=== PATIENT | female | born 1945 | race Caucasian/White ===

== ENCOUNTER 2016-05-19 08:49 | Emergency (ER) | payer MEDICARE ==
[~2016-05-19] VITALS: Ht 144.8 cm; Wt 40.6 kg
[~2016-05-19 08:49] MED LIST: ASP81CT PO; ATOR10TA56; CYAN50005 PO; FURO-125 PO; MECL-115 PO; OMEP20CA12 PO; TRIA1TAB3 PO
--- OUTSIDE RECORDS SUMMARY | 2016-05-19 08:55 | XMS REPORT | Summary of Care ---
Author Author Radha Varghese, FACP,, Cesar F Organization Unknown Address [address], [place] [id number] Phone Unavailable Care Team Providers Care Software Tools Developer Name Role Phone Noreen Evangelista M.D. Unavailable Suresh Gaming M.D. Unavailable Unavailable Radha Varghese, FACP,, F Unavailable Unavailable Rakesh Evangelista PP Unavailable Unavailable Unavailable Functional Status Functional Status Health Issues Name Dates Details Functional status health issues are not documented Status: Cognitive Status Health Issues Name Dates Details Cognitive status health issues are not documented Status: Problems Name Dates Details Weight loss, unintentional (783.21, R63.4) Status: Active Vitamin B12 deficiency (266.2, E53.8) Status: Active Gastric erosions (535.40, K25.9) Status: Active Dyspnea (786.09, R06.00) Status: Active History of CVA (cerebrovascular accident) (V12.54, Z86.73) Status: Active 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, Z95.1) Status: Active Sensation of fullness in ear, bilateral (388.8, H93.8X3) Status: Active Impairment of balance (781.2, R26.89) Status: Active CAD (coronary artery disease) (414.00, I25.10) Status: Active Hyperlipemia (272.4, E78.5) Status: Active Dental abscess (522.5, K04.7) Status: Active Hypertension (401.9, I10) Status: Active Pain, dental (525.9, K08.8) Status: Active Osteoarthritis (715.90, M19.90) Status: Active Sciatica, left (724.3, M54.32) Status: Active Low back pain (724.2, M54.5) Status: Active Hip bursitis, left (726.5, M70.72) Status: Active Bursitis of hip (726.5, M70.70) Status: Active Iron deficiency anemia due to chronic blood loss (280.0, D50.0) Status: Active Lung fibrosis (515, J84.10) Status: Active Medications Name Dates Details Furosemide 20 MG Oral Tablet take two tablets by mouth daily Quantity: 180 Refills: 2 Rakesh Evangelista M.D. Started 25-Feb-2014 ActiveAtorvastatin Calcium 10 MG Oral Tablet TAKE 1 TABLET DAILY AT BEDTIME. Quantity: 90 Refills: 3 Rakesh Evangelista M.D. Started 25-Feb-2014 ActiveAspirin 81 MG TABS TAKE 1 TABLET DAILY. Refills: 0 Rakesh Evangelista M.D. Started 24-Mar-2014 ActiveOmeprazole 20 MG Oral Capsule Delayed Release TAKE ONE CAPSULE BY MOUTH TWICE A DAY Quantity: 60 Refills: 3 Rakesh Evangelista M.D. Started 11-Dec-2014 ActiveB-12 5000 MCG Oral Capsule Refills: 0 Started 26-Dec-2014 ActiveNaproxen 500 MG Oral Tablet TAKE 1 TABLET EVERY 12 HOURS DAILY. Quantity: 60 Refills: 1 Suresh Knapp M.D. Started 21-Aug-2015 ActiveIron 325 (65 Fe) MG Oral Tablet TAKE ONE TABLET BY MOUTH EVERY DAY WITH FOOD Refills: 0 Cesar Garcia M.D., VIKTOR, Started 27-Aug-2015 Active Allergies and Adverse Reactions Name Dates Details Lortab TABS Status: Active morphine Status: Active Past Medical History Name Dates Details History of abdominal pain (V13.89, Z87.898) Status: Resolved History of backache (V13.59, Z87.39) Status: Resolved History of nausea and vomiting (V12.79, Z87.898) Status: Resolved History of Stroke syndrome (434.91, I63.9) Status: Resolved History of thrombocytosis (V12.3, Z86.2) Status: Resolved Procedures Procedure Dates Details History of Tonsillectomy With Adenoidectomy History of Knee Surgery History of Hysterectomy History of Cath Placement Of Stent 2 History of CABG CBC w/ Auto Diff 7150 Ordered:27-Aug-2015 Comprehensive Metabolic Panel 1212 Ordered:27-Aug-2015 EPO PANEL 3699 Ordered:27-Aug-2015 ORTHO SPINE LUMBAR (5 VIEWS) Ordered:20-Aug-2015 CT CHEST WITH IV CONTRAST Ordered:27-Aug-2015 Immunization Name Dates Details Immunizations not documented Family History Unknown Family Member Name Dates Details Family history of renal failure (V18.69, Z84.1) Comments: Family History Status: Active Family history of colonic polyps (V18.51, Z83.71) Comments: Family History Status: Active Family history of melanoma (V16.8, Z80.8) Comments: Family History Status: Active Family history of alcoholism (V17.0, Z81.1) Comments: Family History Status: Active Father Name Dates Details Family history of acute myocardial infarction (V17.3, Z82.49) Status: Active Social History Name Dates Details Smoking StatusFormer smoker Vital Signs Date Test Result Details 27-Aug-2015 13:57 BP Systolic 113 mm[Hg] Status: BP Diastolic 66 mm[Hg] Status: Temperature 98.4 f Status: Heart Rate 79 /min Status: Weight 93.5 lb Status: Body Mass Index Calculated 20.23 kg/m2 Status: Body Surface Area Calculated 1.3 m2 Status: 21-Aug-2015 11:28 BP Systolic 142 mm[Hg] Status: BP Diastolic 78 mm[Hg] Status: Heart Rate 82 /min Status: Weight 92 lb Status: Body Mass Index Calculated 19.91 kg/m2 Status: Body Surface Area Calculated 1.29 m2 Status: 11-Aug-2015 11:05 BP Systolic 130 mm[Hg] Status: BP Diastolic 78 mm[Hg] Status: Heart Rate 80 /min Status: Weight 95 lb Status: O2 SAT 96 % Status: Body Mass Index Calculated 20.56 kg/m2 Status: Body Surface Area Calculated 1.31 m2 Status: Results Date Description Value Details 17-Aug-2015 16:40 CT CHEST WITH IV CONTRAST Comments: Exam Date: 2015 14:18Dictation Date: 08/17/2015 16:40 XC CHEST (Better) 19-Aug-2015 16:04 MRI LUMBAR SPINE Comments: Exam Date: 08/19/2015 13: 00Dictation Date: 08/19/2015 16:04 XMR SPINE LUMBAR (Better) 26-Aug-2015 13:58 CBC w/ Auto Diff 7150 WBC 8.7 K/uL (Better) Range: 4.5-11.0 RBC 4.51 mil/uL (Better) Range: 3.60-5.00 HGB 14.2 g/dL (Better) Range: 12.0-16.0 HCT 42.7 % (Better) Range: 36.0-48.0 MCV 94.6 fL (Better) Range: 80.0-99.0 MCH 31.3 pg (Better) Range: 27.3-32.5 MCHC 33.2 % (Better) Range: 32.0-36.0 RDW 14.1 % (Better) Range: 11.6-14.8 PLATELETS 341 K/uL (Better) Range: 150-400 MPV 8.3 fL (Better) Range: 6.0-11.0 %NEUTRO 64.4 % (Better) Range: 37.0-80.0 %LYMPHS 24.4 % (Better) Range: 13.0-50.0 %MONO 5.8 % (Better) Range: 0.0-12.0 %EOS 2.6 % (Better) Range: 0.0-7.0 %BASO 0.6 % (Better) Range: 0.0-2.5 %BENSON 2.2 % (Better) Range: 0.0-5.0 NEUTRO 5.6 K/uL (Better) Range: 2.0-6.9 LYMPHS 2.1 K/uL (Better) Range: 0.6-3.4 MONOS 0.5 K/uL (Better) Range: 0.0-0.9 EOS 0.2 K/uL (Better) Range: 0.0-0.7 BASO 0.1 K/uL (Better) Range: 0.0-0.2 14:28 VITAMIN B12 3606 VITAMIN B12 >2000 pg/mL (Above high threshold) Range: 211-911 14:28 FOLATE 3608 FOLATE 12.5 ng/mL (Better) Range: 5.4-20.8 14:28 FERRITIN 3025 FERRITIN 13 ng/mL (Better) Range: 10-291 14:29 Comprehensive Metabolic Panel 1212 SODIUM 140 mmol/L (Better) Range: 133-144 POTASSIUM 4.7 mmol/L (Better) Range: 3.5-5.1 CHLORIDE 101 mmol/L (Better) Range: 98-110 CARBON DIOXIDE 27.9 mmol/L (Better) Range: 23.0-33.0 ANION GAP 11 mmol/L (Better) Range: 6-16 BUN 15 mg/dL (Better) Range: 7-18 CREATININE, SERUM 1.12 mg/dL (Above high threshold) Range: 0.55-1.02 Comments: Please note new reference ranges effective 2014.----- BUN:CREATININE RATIO 13 (Better) EST GFR, 58 ml/min (Below low threshold) Range: >60 EST GFR, NON-AFR CAMEROONIAN 48 ml/min (Below low threshold) Range: >60 Comments: EST GFR is reported in ml/min per 1.73 m2 of body surface area. For -Bolivian, please multiple result by 1.2.----- GLUCOSE 85 mg/dL (Better) Range: 70-100 ALK PHOSPHATASE 85 U/L (Better) Range: 46-116 TOTAL BILIRUBIN 0.50 mg/dL (Better) Range: 0.20-1.00 AST 19 U/L (Better) Range: 8-35 ALT 21 U/L (Better) Range: 14-59 Comments: Please note new reference ranges. Effective 07/17/2014.----- ALBUMIN 4.2 g/dL (Better) Range: 3.4-5.0 TOTAL PROTEIN 7.0 g/dL (Better) Range: 6.4-8.2 A/G RATIO 1.5 units (Better) Range: 1.0-1.8 CALCIUM 8.8 mg/dL (Better) Range: 8.5-10.1 14:29 Iron Panel with TIBC 1612 IRON 93 ug/dL (Better) Range: 50-170 TOTAL IRON BIND. CAPACITY 418 ug/dL (Better) Range: 250-450 % IRON SATURATION 22 % (Better) Range: 20-55 Plan of Care Planned Observations Name Dates Details Planned Goals not documented Goal Planned Encounters Appointment; Provider: Cesar Garcia On 25-Feb-2016 13:15 Appointment; Provider: Ann Griggs On 31-Dec-2015 13:30 Appointment; Provider: Rakesh Evangelista On 15-Sep-2015 11:00 Appointment; Provider: Suresh Knapp On 11-Sep-2015 11:00 Appointment; Provider: Schedule Radiology On 19-Aug-2015 13:30 Appointment; Provider: [facility] On 17-Aug-2015 14:30 Appointment; Provider: [facility] On 26-Feb-2015 16:00 Instructions Instructions not documented Encounters Appointment; Cesar Garcia Encounter Diagnosis: Problem not documented On 27-Aug-2015 13:45 Appointment; Suresh Knapp Encounter Diagnosis: Problem not documented On 21-Aug-2015 11:30 Appointment; Rakesh Evangelista Encounter Diagnosis: Problem not documented On 11-Aug-2015 11:00 Appointment; Becca Tanner Encounter Diagnosis: Problem not documented On 03-Jul-2015 11:15 Appointment; Ann Griggs Encounter Diagnosis: Problem not documented On 02-Jul-2015 13:30 Appointment; Mary Tavarez Encounter Diagnosis: Problem not documented On 24-Jun-2015 13:50 Appointment; Ann Griggs Encounter Diagnosis: Problem not documented On 16-Jun-2015 14:00 Appointment; Rakesh Evangelista Encounter Diagnosis: Problem not documented On 09-Jun-2015 11:15 Appointment; Rakesh Evangelista Encounter Diagnosis: Problem not documented On 28-Apr-2015 11:15 Appointment; Rakesh Evangelista Encounter Diagnosis: Problem not documented On 28-Apr-2015 10:45 Appointment; Rakesh Evangelista Encounter Diagnosis: Problem not documented On 23-Mar-2015 14:30 Appointment; Cesar Garcia Encounter Diagnosis: Problem not documented On 23-Mar-2015 11:30 Appointment; Rakesh Evangelista Encounter Diagnosis: Problem not documented On 24-Feb-2015 13:45 Appointment; Ann Griggs Encounter Diagnosis: Problem not documented On 22-Jan-2015 13:00 Appointment; Rakesh Evangelista Encounter Diagnosis: Problem not documented On 13-Jan-2015 14:15 Appointment; Jeffrey Davis Encounter Diagnosis: Problem not documented On 09-Jan-2015 14:00 Appointment; Jeffrey Davis Encounter Diagnosis: Problem not documented On 26-Dec-2014 13:30 Appointment; Titus Smyth Encounter Diagnosis: Problem not documented On 18-Dec-2014 11:00 Appointment; Britt Spring Encounter Diagnosis: Problem not documented On 18-Dec-2014 10:30 Appointment; Rakesh Evangelista Encounter Diagnosis: Problem not documented On 11-Dec-2014 09:45 Appointment; Cesar Garcia Encounter Diagnosis: Problem not documented On 13:45 Appointment; Rakesh Evangelista Encounter Diagnosis: Problem not documented On 15-Aug-2014 10:15 Appointment; Rakesh Evangelista Encounter Diagnosis: Problem not documented On 08-Aug-2014 14:30 Appointment; Rakesh Evangelista Encounter Diagnosis: Problem not documented On 08-Aug-2014 14:00 Appointment; Ann Griggs Encounter Diagnosis: Problem not documented On 23-Jul-2014 10:15 Appointment; Cesar Garcia Encounter Diagnosis: Problem not documented On 17-Jul-2014 13:15 Appointment; Rakesh Evangelista Encounter Diagnosis: Problem not documented On 09-Jul-2014 14:00 Appointment; Cesar Garcia Encounter Diagnosis: Problem not documented On 05-Jun-2014 13:45 Appointment; Cesar Garcia Encounter Diagnosis: Problem not documented On 25-Mar-2014 09:00 Appointment; Rakesh Evangelista Encounter Diagnosis: Problem not documented On 24-Mar-2014 13:30 Appointment; Rakesh Evangelista Encounter Diagnosis: Problem not documented On 25-Feb-2014 13:45
[2016-05-19] MEDS ORDERED: SODIUM CHLORIDE FLUSH 10 ML SYR IV PRN (09:15)
[2016-05-19] MEDS ORDERED: SODIUM CHLORIDE FLUSH 3 ML SYR IV PRN (09:15)
[2016-05-19 09:18] LABS: BASOPHILS % (AUTO) 1 % (0-2); EOSINOPHILS # (AUTO) 0.3 10^3uL; EOSINOPHILS % (AUTO) 3 % (0-4); LYMPHOCYTES # (AUTO) 3.4 X10^3; MEAN CORPUSCULAR HEMOGLOBIN 31.3 PG (26.0-34.0); MEAN CORPUSCULAR HGB CONC 33.9 g/dL (31.0-37.0); MEAN CORPUSCULAR VOLUME 92 FL (80-100); MEAN PLATELET VOLUME 9.5 FL (6.0-9.5); MONOCYTES # (AUTO) 0.8 X10^3; MONOCYTES % (AUTO) 8 % (3-11); NEUTROPHILS # (AUTO) 5.3 X10^3; NEUTROPHILS % (AUTO) 53 % (51-67); PLATELET COUNT 452 10^3uL (150-450)
[2016-05-19 09:29] LABS: GLUCOSE, URINE (UA) Negative (Negative); LEUKOCYTE ESTERASE ,URINE Trace (Negative)
[2016-05-19 09:30] LABS: COLOR,URINE Dark Yellow
[2016-05-19 09:31] LABS: BILIRUBIN,URINE 2+ (Negative); CLARITY,URINE Slightly Cloudy
[2016-05-19 09:36] LABS: ALBUMIN 4.4 g/dL (3.4-5.0); ALKALINE PHOSPHATASE 124 U/L (38-126); ANION GAP 15.1 MEQ/L (3-15); BUN/CREATININE RATIO 22 (10-20); CALCULATED IONIZED CALCIUM 3.8 mg/dL (3.8-4.6); CREATINE KINASE 59 U/L (30-135); TOTAL PROTEIN 7.8 g/dL (6.4-8.5)
[2016-05-19 09:44] LABS: URINE CENTRIFUGED VOLUME 10 mL
[2016-05-19] MEDS ORDERED: SULF1TAB35 PO (09:57)
[2016-05-19 10:01] VITALS: BP 111/77
== END 2016-05-19 10:02 | disposition home or self-care (01) ==
LOC: ED 08:51
DX: R82.99 Other abnormal findings in urine (principal); R68.83 Chills (without fever); R53.1 Weakness
CPT/HCPCS: 36415; 80053; 81003; 81015; 82550; 84484; 85025; 87088; 93005; 93010; 99284; 99285